=== PATIENT | female | born 1945 | race Caucasian/White ===

== ENCOUNTER → 2016-11-08 | Outpatient (CLI) | payer OTHER, BC | LOC: ULTRA 08:17 | DX: K76.9 Liver disease, unspecified (principal) ==

== ENCOUNTER → 2017-05-07 | Outpatient (CLI) | payer OTHER, BC | LOC: RAD 08:43 | DX: M47.896 Other spondylosis, lumbar region (principal) ==

== ENCOUNTER → 2019-11-13 | Outpatient (CLI) | payer OTHER, BC | LOC: SJCVCIMAG 07:52 | PROVIDERS: ATTEND Internal Medicine | DX: I08.3 Combined rheumatic disorders of mitral, aortic and tricuspid valves (principal); I31.3 Pericardial effusion (noninflammatory) ==

== ENCOUNTER → 2019-12-28 | Outpatient (CLI) | payer OTHER, BC | LOC: NUC 12:06 | PROVIDERS: ATTEND Family Medicine | DX: M85.88 Other specified disorders of bone density and structure, other site (principal); M41.80 Other forms of scoliosis, site unspecified; M81.0 Age-related osteoporosis without current pathological fracture; Z78.0 Asymptomatic menopausal state ==